=== PATIENT | male | born 1975 | race Caucasian/White ===

== ENCOUNTER 2021-06-27 15:53 | Emergency (ER) | payer BC ==
[~2021-06-27] VITALS: Ht 185.4 cm; Wt 72.6 kg
--- NOTE | 2021-06-27 16:07 | NUR ---
The patient is bib ra c/o syncopal episode while at lunch. pt admits to taking norco and alcohol. The patient is alert and oriented x4. Denies pain. In room air and denies SOB. Respiration regular and unlabored. Attached to the monitor.
--- NOTE | 2021-06-27 16:14 | NUR ---
MATTING [employer]ER RAC G 18
[2021-06-27] MEDS ORDERED: ACETAMINOPHEN ES 500 MG TABLET PO ONE (16:30)
[2021-06-27] MEDS ORDERED: IV NS 0.9% 1,000 ML BAG IV ONE (16:30)
--- NOTE | 2021-06-27 17:08 | NUR ---
TAKEN TO CT
--- NOTE | 2021-06-27 17:25 | NUR ---
THE PATIENT IS BACK FROM CT
[2021-06-27] MEDS ORDERED: ACETAMINOPHEN ES 500 MG TABLET ONE (17:31)
[2021-06-27 17:38] LABS: BASOPHILS % (AUTO) 0.3 % (0.0-2.0); EOSINOPHILS % (AUTO) 0.6 % (0.0-6.0); HEMATOCRIT 43 % (39-51); HEMOGLOBIN 14.8 g/dL (13.5-17.5); LYMPHOCYTES # (AUTO) 1.5 K/uL (0.8-4.8); LYMPHOCYTES % (AUTO) 15.3 % (20.0-44.0); MEAN CORPUSCULAR HGB CONC 35 g/dl (31.0-36.0); MEAN CORPUSCULAR VOLUME 86 fL (80-96); MONOCYTES # (AUTO) 0.8 K/uL (0.1-1.30); MONOCYTES % (AUTO) 7.7 % (2.0-12.0); NEUTROPHILS # (AUTO) 7.6 K/uL (1.8-8.9); NEUTROPHILS % (AUTO) 76.1 % (43.0-81.0); PLATELET COUNT (AUTO) 179 K/uL (150-450); RED BLOOD CELL COUNT(AUTO) 4.95 MIL/uL (4.5-6.0)
[2021-06-27 17:52] LABS: CARBON DIOXIDE 31 mmol/L (21-32); CHLORIDE 103 mmol/L (98-107); GLUCOSE 99 mg/dL (74-106); POTASSIUM 3.7 mmol/L (3.5-5.1); SODIUM SERUM 140 mmol/L (136-145); UREA NITROGEN, BLOOD 12 mg/dL (7-18)
[2021-06-27 17:59] LABS: ALANINE AMINOTRANSFERASE 31 U/L (12-78); ALBUMIN 4.2 g/dL (3.4-5.0); ALKALINE PHOSPHATASE 64 U/L (46-116); ASPARTATE AMINOTRANSFERASE 16 U/L (15-37); BILIRUBIN,DIRECT 0.1 mg/dL (0.0-0.2); BILIRUBIN,TOTAL 0.4 mg/dL (0.2-1.0); TOTAL PROTEIN, SERUM 7.7 g/dL (6.4-8.2)
[2021-06-27] MEDS ORDERED: ACET-2605 PO (18:09)
[2021-06-27] MEDS ORDERED: NALO4SPR NS (18:09)
[2021-06-27] MEDS ORDERED: BACI30OI9 TP (18:09)
[2021-06-27 18:49] VITALS: BP 125/76
--- NOTE | 2021-06-27 18:49 | NUR ---
IV removed. Catheter intact and site benign. Pressure and 4x4 applied to site. No bleeding noted.Patient discharged to home in stable condition. Written and verbal after care instructions given. Patient verbalizes understanding of instruction.
== END 2021-06-27 18:50 | disposition home or self-care (01) ==
LOC: ER 15:57
DX: S00.211A Abrasion of right eyelid and periocular area, initial encounter (principal); S00.81XA Abrasion of other part of head, initial encounter; R55 Syncope and collapse; Z79.899 Other long term (current) drug therapy; W19.XXXA Unspecified fall, initial encounter; Y93.89 Activity, other specified; Y92.89 Other specified places as the place of occurrence of the external cause; Y99.8 Other external cause status
CPT/HCPCS: 36415; 70450; 70486; 71045; 72125; 80048; 80076; 84484; 85025; 85730; 93005; 96360; 99285; J7030